=== PATIENT | female | born 1945 | race Caucasian/White ===

== ENCOUNTER 2017-05-20 16:35 | Emergency (ER) | payer OTHER ==
[~2017-05-20] VITALS: Ht 154.9 cm; Wt 54.7 kg
[2017-05-20] MEDS ORDERED: OMEGCAP PO (17:07)
[2017-05-20] MEDS ORDERED: ASPI81CH6 CHEW (17:07)
[2017-05-20] MEDS ORDERED: ISOS30TA3 PO (17:07)
[2017-05-20] MEDS ORDERED: LORA0.5T PO (17:07)
[2017-05-20] MEDS ORDERED: ROSU10 PO (17:07)
[2017-05-20] MEDS ORDERED: ERGO2000 PO (17:07)
[2017-05-20] MEDS ORDERED: METO-426 PO (17:07)
[2017-05-20] MEDS ORDERED: PLAV75TA29 PO (17:07)
[2017-05-20 17:08] VITALS: BP 122/58; PULSE 68; RESP 18; TEMP 98.4; O2SAT 96
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
[2017-05-20] MEDS ORDERED: ROBA750T PO (19:16)
== END 2017-05-20 19:47 | disposition home or self-care (01) ==
LOC: PHEFT 16:35
DX: S16.1XXA Strain of muscle, fascia and tendon at neck level, initial encounter (principal); R51 Headache; F41.9 Anxiety disorder, unspecified; E78.00 Pure hypercholesterolemia, unspecified; I25.10 Atherosclerotic heart disease of native coronary artery without angina pectoris; I10 Essential (primary) hypertension; I21.A9 Other myocardial infarction type; V49.40XA Driver injured in collision with unspecified motor vehicles in traffic accident, initial encounter; Z79.02 Long term (current) use of antithrombotics/antiplatelets
CPT/HCPCS: 70450; 72125; 99283